=== PATIENT | female | born 1980 | race Caucasian/White ===

== ENCOUNTER → 2016-10-12 | Outpatient (CLI) | payer SELFPAY ==
[~2016-10-12] MED LIST: ADDERALL5 MG PO; ALLEGRA60 MG PO; DOXYCYCLINE 10100 MG PO; DROSPIRENONE; ORTHO TRI-CYCLE1 TA1 PO; VYVANSE20 MG PO; WELLBUTRIN XL150 MG PO; ZOLOFT
== END ==
LOC: BHSO 15:26
DX: F90.0 Attention-deficit hyperactivity disorder, predominantly inattentive type (principal)

== ENCOUNTER → 2017-04-13 | Outpatient (CLI) | payer SELFPAY | LOC: BHSO 14:27 | DX: F90.0 Attention-deficit hyperactivity disorder, predominantly inattentive type (principal) ==

== ENCOUNTER → 2018-01-09 | Outpatient (CLI) | payer SELFPAY | LOC: BHSO 11:08 | DX: F90.0 Attention-deficit hyperactivity disorder, predominantly inattentive type (principal) | CPT/HCPCS: G0463 ==

== ENCOUNTER → 2018-09-07 | Outpatient (CLI) | payer SELFPAY | LOC: BHSO 16:27 | DX: F90.0 Attention-deficit hyperactivity disorder, predominantly inattentive type (principal) | CPT/HCPCS: G0463 ==

== ENCOUNTER 2018-11-12 22:48 | Emergency (ER) | payer SELFPAY ==
[~2018-11-12] VITALS: Ht 167.6 cm; Wt 125.0 kg
[~2018-11-12 22:48] MED LIST changes: -ZOLOFT; +ZOLOFT 50MG50 MG PO
[2018-11-12 23:02] VITALS: TEMP 99.1
[2018-11-12] MEDS ORDERED: ADDERALL20 MG PO (23:27)
[2018-11-12 23:43] LABS: BASO % 0.1 % (0.0-2.0); EOS # 0.2 (0.0-0.7); EOS % 2.1 % (0-4.0); GRAN # 5.7 (1.4-6.5); GRAN % 80.2 % (42.2-75.2); HEMATOCRIT 37.8 % (37.0-47.0); HEMOGLOBIN 13.4 g/dl (12.5-16.0); LYMPH # 0.8 (1.2-3.4); LYMPH % 10.7 % (20.0-51.0); MEAN CELL VOLUME 89 fl (80.0-100.0); MEAN CORPUSCULAR HEMOGLOBIN 32 pg (27.0-31.0); MEAN CORPUSCULAR HGB CONC 35 g/dl (33.0-37.0); MEAN PLATELET VOLUME 9.7 fl (7.4-10.4); MONO # 0.5 (0.1-0.6); MONO % 6.5 % (1.7-9.3); PLATELET COUNT 213 K/mm3 (130-400); RED BLOOD COUNT 4.25 M/mm3 (4.10-5.30); REDCELL DISTRIBUTION WIDTH-CV 12.7 % (11.5-14.5)
[2018-11-12 23:57] LABS: BILIRUBIN,TOTAL 0.4 mg/dL (0.0-1.0); C-REACTIVE PROTEIN 3.9 mg/dL (0.0-0.9); CALCIUM 9.2 mg/dL (8.4-10.2); CREATININE, serum 0.69 (0.52-1.25); POTASSIUM 3.8 mmol/L (3.4-5.0)
[2018-11-13 00:49] VITALS: BP 131/64; PULSE 88
== END 2018-11-13 00:52 | disposition home or self-care (01) ==
LOC: COL.ER 22:48
PROVIDERS: Emergency Medicine
DX: R51 Headache (principal); R11.2 Nausea with vomiting, unspecified; R19.7 Diarrhea, unspecified; F32.9 Major depressive disorder, single episode, unspecified; Z88.0 Allergy status to penicillin; Z88.1 Allergy status to other antibiotic agents; Z88.2 Allergy status to sulfonamides; Z98.890 Other specified postprocedural states
CPT/HCPCS: J1200; J1885; J2405; J7030

== ENCOUNTER → 2019-03-29 | Outpatient (CLI) | payer SELFPAY ==
[~2019-03-29] MED LIST changes: +ADDERALL20 MG PO
== END ==
LOC: BHSO 09:46
DX: F90.0 Attention-deficit hyperactivity disorder, predominantly inattentive type (principal)
CPT/HCPCS: G0463

== ENCOUNTER → 2019-06-07 | Outpatient (CLI) | payer SELFPAY | LOC: MC.RAD 08:30 | DX: N64.4 Mastodynia (principal) | CPT/HCPCS: G0279 ==

== ENCOUNTER → 2019-09-25 | Outpatient (CLI) | payer SELFPAY | LOC: BHSO 16:07 | DX: F90.0 Attention-deficit hyperactivity disorder, predominantly inattentive type (principal) | CPT/HCPCS: G0463 ==

== ENCOUNTER → 2020-03-24 | Outpatient (CLI) | payer SELFPAY | LOC: BHSO 16:25 | DX: F33.42 Major depressive disorder, recurrent, in full remission (principal) | CPT/HCPCS: G0463 ==

== ENCOUNTER → 2020-04-08 | Outpatient (CLI) | payer SELFPAY | LOC: COL.CARD | DX: I49.3 Ventricular premature depolarization (principal) ==

== ENCOUNTER → 2020-08-31 | Outpatient (CLI) | payer SELFPAY | LOC: MC.RAD 14:00 | DX: N63.12 Unspecified lump in the right breast, upper inner quadrant (principal) ==

== ENCOUNTER → 2020-09-09 | Outpatient (CLI) | payer SELFPAY | LOC: MC.RAD 08:30 | DX: Z01.818 Encounter for other preprocedural examination (principal); N63.11 Unspecified lump in the right breast, upper outer quadrant ==

== ENCOUNTER 2022-06-09 09:40 | Day surgery (SDC) | payer SELFPAY ==
[~2022-06-09] VITALS: Ht 167.6 cm; Wt 129.1 kg
[2022-06-09] MEDS ORDERED: SINGULAIR 110 MG/TAB PO (10:09)
[2022-06-09 12:05] VITALS: BP 123/92; PULSE 69; TEMP 98.4
[2022-06-09 12:20] VITALS: BP 116/70; PULSE 69
--- NOTE | 2022-06-09 12:40 | NUR ---
1205-PT TO BAY 4 PER CART FROM ENDO ROOM. REPORT RECEIVED. VS OBTAINED. CALL LIGHT WITHIN REACH. PT TOLERATING SODA AND APPLESAUCE. 1208-DR CARMONA IN ROOM DISCUSSING PROCEDURE FINDINGS. 1225-IV DC'D AT THIS TIME. 1230-DISCHARGE EDUCATION COMPLETED WITH PT AND HER MOTHER. VERBALIZED UNDERSTANDING OF HOME AND FOLLOW UP CARE. ALL QUESTIONS ANSWERED. DISCHARGE PAPERWORK GIVEN TO PT. 1240-PT OFF UNIT PER WHEELCHAIR. PT DISCHARGED TO HOME WITH MOTHER PER PERSONAL VEHICLE.
== END 2022-06-09 12:40 | disposition home or self-care (01) ==
LOC: SDCO 09:40
DX: Z12.11 Encounter for screening for malignant neoplasm of colon (principal); D12.2 Benign neoplasm of ascending colon; D12.3 Benign neoplasm of transverse colon; E66.01 Morbid (severe) obesity due to excess calories; Z68.42 Body mass index [BMI] 45.0-49.9, adult
CPT/HCPCS: J2704; J7120

== ENCOUNTER 2022-09-10 19:15 | Emergency (ER) | payer SELFPAY ==
[~2022-09-10] VITALS: Ht 170.2 cm; Wt 127.3 kg
[~2022-09-10 19:15] MED LIST changes: +SINGULAIR 110 MG/TAB PO
[2022-09-10 19:19] VITALS: TEMP 98
[2022-09-10] MEDS ORDERED: PREDNISONE20 MG PO (20:12)
[2022-09-10] MEDS ORDERED: ZITHROMAX Z PA250 MG PO (20:12)
[2022-09-10] MEDS ORDERED: PHENERGAN W/CO120 M1 PO ×2 (20:12)
[2022-09-10 20:36] VITALS: BP 134/81; PULSE 80
[2022-09-11] MEDS ORDERED: PHENERGAN 25 TA25 MG PO (11:06)
== END 2022-09-10 20:37 | disposition home or self-care (01) ==
LOC: COL.ER 19:15
DX: J45.909 Unspecified asthma, uncomplicated (principal); Z88.1 Allergy status to other antibiotic agents; Z28.310 Unvaccinated for COVID-19
CPT/HCPCS: J7512